=== PATIENT | male | born 1955 | race African-American/Black ===

== ENCOUNTER 2020-07-20 23:53 | Emergency (ER) | payer BC, MEDICAID ==
[~2020-07-20] VITALS: Ht 180.3 cm; Wt 106.0 kg
[2020-07-21] MEDS ORDERED: ONDANSETRON HCL 4MG/2ML INJ IV ONE (00:45)
[2020-07-21] MEDS ORDERED: MECLIZINE 25MG TABLET PO ONE ×2 (00:45→03:00)
[2020-07-21] MEDS ORDERED: SODIUM CHLORIDE 0.9% 1,000 ML IV ONE (00:45)
[2020-07-21 01:00] LABS: EOSINOPHILS % 0.3 % (0.0-5.0); HEMOGLOBIN. 14.4 g/dL (14.0-18.0); LYMPHOCYTES % 13.6 % (20.0-50.0); MEAN CORPUSCULAR HEMOGLOBIN 29.9 pg (28.0-32.0); MEAN CORPUSCULAR VOLUME 89.1 fL (80.0-94.0); MEAN PLATELET VOLUME 8.7 fl (7.4-10.4); MONOCYTES % 5.2 % (2.0-8.0); NEUTROPHILS % 79.9 % (40.0-76.0); PLATELET 177 x1000/uL (130-400); RED BLOOD CELL COUNT 4.83 mill/uL (4.7-6.1); RED CELL DISTRIBUTION WIDTH 14.1 % (11.6-14.6)
[2020-07-21 01:06] LABS: CHLORIDE 106 mEq/L (98-107)
[2020-07-21 01:09] LABS: PROTHROMBIN TIME 10.8 sec (9.6-11.0)
[2020-07-21 01:10] LABS: CLARITY URINE CLEAR (CLEAR); COLOR URINE YELLOW (YELLOW); KETONES URINE NEGATIVE (NEGATIVE); LEUKOCYTE ESTERASE URINE NEGATIVE (NEGATIVE); NITRITE URINE NEGATIVE (NEGATIVE); OCCULT BLOOD URINE NEGATIVE (NEGATIVE); PH URINE 6.5 (4.5-8.0); PROTEIN URINE NEGATIVE (NEGATIVE); SPECIFIC GRAVITY URINE 1.014 (1.005-1.030)
[2020-07-21] MEDS ORDERED: ASPIRIN 325MG EC TABLET PO ONE (03:00)
[2020-07-21] MEDS ORDERED: LISINOPRIL 40MG TABLET PO ONE (07:15)
[2020-07-21 07:31] VITALS: BP 161/90
== END 2020-07-21 07:45 | disposition short-term general hospital (02) ==
LOC: ER 23:53
DX: R26.9 Unspecified abnormalities of gait and mobility (principal); R42 Dizziness and giddiness; I10 Essential (primary) hypertension; E11.9 Type 2 diabetes mellitus without complications
CPT/HCPCS: 36415; 70450; 71045; 80053; 81003; 84484; 85025; 85610; 93005; 96361; 96374; 99285; J2405; J7030; J8597